=== PATIENT | female | born 1950 | race Caucasian/White ===

== ENCOUNTER 2019-04-09 02:36 | Emergency (ER) | payer BC ==
[~2019-04-09] VITALS: Ht 157.5 cm; Wt 75.7 kg
[2019-04-09 02:40] VITALS: Ht 157.5 cm; Wt 75.7 kg
[2019-04-09 04:48] LABS: CALCIUM 7.5 mg/dL (8.5-10.1); CARBON DIOXIDE 23.3 mmol/L (21-32); CHLORIDE SERUM 101 mmol/L (98-107); CREATININE SERUM 0.7 mg/dL (0.6-1.0); GFR1 > 60 mL/min; GLUCOSE SERUM 173 mg/dL (74-106); POTASSIUM SERUM 4.4 mmol/L (3.5-5.1); SODIUM SERUM 135 mmol/L (136-145)
[2019-04-09 04:54] LABS: ALKALINE PHOSPHATASE 74 U/L (46-116); ALT/SGPT 18 U/L (14-59); AMYLASE 60 U/L (25-115); AST/SGOT 20 U/L (15-37); BILIRUBIN TOTAL 0.5 mg/dL (0.20-1.00); LIPASE 113 IU/L (73-393); TOTAL PROTEIN, SERUM 7.6 g/dL (6.4-8.2)
[2019-04-09 04:59] LABS: BASOPHIL % 0.3 % (0-2); PLATELET COUNT 241 x10^3mcL (130-400); RED CELL DISTRIBUTION WIDTH 13.3 % (11.5-14.5)
[2019-04-09 07:57] LABS: microscopic required? YES; urine erythrocyte TRACE (NEGATIVE)
[2019-04-09 08:32] VITALS: BP 138/66
== END 2019-04-09 09:15 | disposition home or self-care (01) ==
LOC: ED 02:36
PROVIDERS: Emergency Medicine
DX: N13.2 Hydronephrosis with renal and ureteral calculous obstruction (principal); Z85.3 Personal history of malignant neoplasm of breast
CPT/HCPCS: J1885; J2270; J2405; J7030